=== PATIENT | female | born 1945 | race Caucasian/White ===

== ENCOUNTER 2018-03-05 07:36 | Emergency (ER) | payer MEDICARE ==
[~2018-03-05] VITALS: Ht 160 cm; Wt 92.0 kg
[~2018-03-05 07:36] MED LIST: AMANTADINE100 MG PO; CALCIUM + D600 MG PO; CLOBETASOL0.051 EX; FISH OIL1000 MG PO; FLUARIX QUADRIV1 INJ IM; LISINOPRIL5 MG PO; MELOXICAM7.5 MG PO; MULTI 501 OR; NYSTAT/TRIA2 EX; TRAMADOL HCL50 MG PO; VITAMIN D35000 UNIT PO; ZPAK PO
[2018-03-05 08:33] LABS: HEMOGLOBIN 12.5 g/dl (12.0-16.0); IMMATURE GRANULOCYTES 0.3 % (0.0-1.0); MEAN CELL VOLUME 94.1 fL CALC (80.0-100.0); MEAN CORPUSCULAR HGB 30.9 pG CALC (26.0-32.0); MEAN CORPUSCULAR HGB CONC 32.9 g/L CALC (32.0-36.0); NEUT# 6.78 thou/uL (2.00-7.15); RED BLOOD COUNT 4.04 mill/uL (4.20-5.60); RED CELL DISTRI WIDTH 13.3 % (11.5-15.5)
[2018-03-05 08:50] LABS: ALBUMIN 3.3 g/dL (3.2-5.0); ANION GAP 11 (6-22 (CALC)); BILIRUBIN, TOTAL 1.4 mg/dL (0.0-1.4); BUN 14 mg/dL (8-23); BUN/CREATININE RATIO 22 (12-20 (CALC)); CARBON DIOXIDE 30 mmol/l (22-30); CHLORIDE 102 mmol/l (95-108); CREATININE 0.6 mg/dL (0.5-1.0); GFR > 60 ML/MIN (>=60 (CALC)); GFR FOR AFR.AMER. > 60 ML/MIN (>=60 (CALC)); SGPT/ALT 50 u/l (11-66); SODIUM 139 mmol/l (137-146); TOTAL PROTEIN 7.4 g/dL (6.3-8.2)
[2018-03-05] MEDS ORDERED: ELIQUIS5 MG PO (08:52)
[2018-03-05] MEDS ORDERED: PAIN MED (08:53)
[2018-03-05 08:55] LABS: ACT PARTIAL THROMBO TIME 27.1 SECONDS (20.0-32.5); INTERNATIONAL NORMALIZED RATIO 1.2 RATIO (0.7-1.3); PROTHROMBIN TIME 12.9 SECONDS (9.0-12.5)
[2018-03-05 09:01] LABS: MYOGLOBIN 52 ng/mL (0 - 62)
[2018-03-05 09:09] LABS: ALKALINE PHOSPHATASE 132 u/l (38-126); SGOT/AST 61 u/l (9-36)
[2018-03-05 09:45] VITALS: BP 139/65
[2018-03-06 10:09] LABS: GFR > 60 ML/MIN (>=60 (CALC)); GFR FOR AFR.AMER. > 60 ML/MIN (>=60 (CALC))
== END 2018-03-05 09:45 | disposition short-term general hospital (02) ==
LOC: ED 07:36
PROVIDERS: Emergency Medicine
DX: I63.9 Cerebral infarction, unspecified (principal); R47.81 Slurred speech; G81.94 Hemiplegia, unspecified affecting left nondominant side; R20.0 Anesthesia of skin; C22.8 Malignant neoplasm of liver, primary, unspecified as to type; I42.9 Cardiomyopathy, unspecified; R74.8 Abnormal levels of other serum enzymes; Z79.01 Long term (current) use of anticoagulants; Z86.711 Personal history of pulmonary embolism; R94.31 Abnormal electrocardiogram [ECG] [EKG]
CPT/HCPCS: Q9967